=== PATIENT | female | born 1965 | race American Indian/Alaskan Native ===

== ENCOUNTER 2017-07-02 12:58 | Outpatient (CLI) | payer MEDICARE ==
--- NOTE | 2017-07-02 13:39 | XRay Report ---
Right knee 2 views: History: Knee pain. Findings: The medial lateral and patellofemoral compartment grossly appears unremarkable. There is cortical erosion noted at the medial aspect of the proximal right tibia just distal to the tibial plateau. There is vascular calcification noted in the adjacent region. No fracture. Impression: Cortical erosion medial proximal tibia. Recommend MRI scan for optimal evaluation
== END 2017-07-02 12:59 | disposition home or self-care (01) ==
LOC: SPVIMAG 12:58
PROVIDERS: ATTEND Orthopaedic Surgery
DX: M85.861 Other specified disorders of bone density and structure, right lower leg (principal); M25.861 Other specified joint disorders, right knee